=== PATIENT | male | born 1960 | race Caucasian/White ===

== ENCOUNTER → 2017-11-02 | Outpatient (CLI) | payer OTHER ==
[~2017-11-02] MED LIST: ATOR40TA49 PO; BACL10TA PO; GABA400C5 PO; GLIP5 PO; LISI-363 PO; LYRI50CA2 PO; OMEP20TA PO
--- NOTE | 2017-11-04 09:41 | RSPPFT ---
DATE OF PROCEDURE: 11/02/17 COMMENTS: VOLUMES DYNAMIC: FVC and FEV1 moderately reduced. STATIC: TLC, FRC and RV mildly reduced. FLOWS: FEV1% normal; FEF 25-75 moderately reduced. DIFFUSION: Moderately reduced. FLOW VOLUME LOOP: Pattern of variable intrathoracic airways obstruction with restriction. IMPRESSION: Moderate obstructive and mild restrictive ventilatory defect with reduction in diffusion. There is significant improvement post-bronchodilator.
== END ==
LOC: PHRSP 07:24
PROVIDERS: ATTEND Internal Medicine
DX: J44.9 Chronic obstructive pulmonary disease, unspecified (principal)
CPT/HCPCS: 36600; 82805; 94060; 94618; 94726; 94729